=== PATIENT | male | born 1945 | race Caucasian/White ===

== ENCOUNTER 2018-02-26 14:27 | Outpatient (CLI) | payer MEDICARE ==
--- NOTE | 2018-02-26 17:24 | MRI ---
MRI OF THE LUMBAR SPINE WITHOUT CONTRAST: Date: 02/26/18 INDICATION: Lumbar radiculopathy with low back extending down both legs. TECHNIQUE: Multiplanar, multisequence MR images were obtained of the lumbar spine without IV contrast. FINDINGS: No acute fracture is evident. Conus is seen to terminate at approximately L1. Visualized retroperiton eum demonstrates a 1.2 cm within the left mid kidney. At L5-S1, there is mild broad based bulge with mild facet joint degenerative change, but no appreciab le central canal or neural foraminal narrowing. At L4-5, there is a broad based bulge with facet hypertrophy, causing mild encroachment on the neural foramina without definite impingement. At L3-4, there is a broad based bulge with mild facet joint degenerative change inducing mild bilater al neural foraminal narrowing. At L2-3, there is a broad based bulge with facet hypertrophy inducing mild neural foraminal encroachm ent without definite nerve root impingement. At L1-2, there is no appreciable central canal narrowing. There is mild broad based bulge. At T12-L1, there is no appreciable central canal or neural foraminal narrowing. IMPRESSION: 1. Multilevel spondylosis of the lumbar spine with mild neural foraminal narrowing as above. 2. Left renal cyst. POS: C
== END 2018-02-26 14:28 | disposition home or self-care (01) ==
LOC: BICMRI 14:27
PROVIDERS: ATTEND Neurological Surgery
DX: M47.26 Other spondylosis with radiculopathy, lumbar region (principal); M99.83 Other biomechanical lesions of lumbar region; N28.1 Cyst of kidney, acquired
CPT/HCPCS: 72148

== ENCOUNTER 2018-03-05 09:48 | Outpatient (CLI) | payer MEDICARE ==
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
== END 2018-03-05 09:49 | disposition home or self-care (01) ==
LOC: TBSIIMAG 09:48
PROVIDERS: ATTEND Neurological Surgery
DX: M51.16 Intervertebral disc disorders with radiculopathy, lumbar region (principal); M48.061 Spinal stenosis, lumbar region without neurogenic claudication
CPT/HCPCS: 72131

== ENCOUNTER 2018-10-14 09:33 | Outpatient (CLI) | payer MEDICARE ==
--- NOTE | 2018-10-14 10:40 | MRI ---
MRI thoracic spine noncontrast: DATE: 10/14/2018 HISTORY: 73-year-old male with thoracic spine pain and thoracic spine radiculopathy FINDINGS: Bone marrow signal is normal. Vertebral body heights are maintained. No high-grade disc space narrowi ng at any level. No central spinal canal stenosis at any level. No high-grade neural foraminal stenosis at any level. Small nerve root sleeve cysts at multiple levels bilaterally, right more than left. Conus medullaris terminates at T12-L1. Thoracic spinal cord is normal in size and signal. No major pathology of perivertebral spaces. IMPRESSION: Essentially normal thoracic spine
== END 2018-10-14 09:34 | disposition home or self-care (01) ==
LOC: TBSIIMAG 09:33
PROVIDERS: ATTEND Specialist
DX: M54.14 Radiculopathy, thoracic region (principal)
CPT/HCPCS: 72146

== ENCOUNTER 2019-12-19 17:53 | Inpatient (IN) | payer MEDICARE, OTHER ==
[~2019-12-19 17:53] MED LIST: Iopamidol-370 76% 500 ML 1 ML ONE
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
--- NOTE | 2019-12-19 18:31 | CT ---
CT head noncontrast HISTORY: Injury. FINDINGS: There is no evidence of acute intracranial hemorrhage or infarct. Mild chronic ischemic sma ll vessel disease. There is no mass effect or shift of midline structures. Comminuted intra-articular mildly displaced fracture of the right mandibular condyle again demonstrat ed with mild displacement of the posterior articular wall fracture. IMPRESSION : Right temporomandibular joint intra-articular fracture with displacement. No acute intracranial abnormalities are demonstrated. Findings the CT cervical spine and head were called to Dr. Woodall in the emergency department at 182 6 hours. Code CR.
[2019-12-19 18:36] LABS: #Basophils 0.1 thou/uL (0.0-0.2); #Eosinphils 0.4 thou/uL (0.0-0.7); #Lymphocytes 1.6 thou/uL (1.20-3.40); #Monocytes 1.1 thou/uL (0.11-0.59); #Neutrophils 8.1 thou/uL (1.40-6.50); %Eosinophils 3.7 % (0.0-10.0); %Lymphocytes 14.5 % (21.0-51.0); %Monocytes 9.7 % (0.0-10.0); %Neutrophils 71.1 % (42.0-75.0); Hemoglobin 13.4 g/dL (14.0-18.0); Mean Corpuscular HGB CONC 32.7 g/dL (32.0-36.0); Mean Corpuscular Hemoglobin 32.5 pg (27.0-31.0); Mean Corpuscular Volume 99.5 fL (78.0-98.0); Mean Platelet Volume 7.6 fL (7.4-10.4); Platelet Count 297 thou/uL (130-400); RBC Distribution Width 12.1 % (11.5-14.5); Red Blood Cell (RBC) Count 4.14 mill/uL (4.70-6.10); White Blood Cell (WBC) Count 11.3 thou/uL (4.8-10.8)
[2019-12-19 18:43] LABS: INR-International Normal Ratio 0.9; PTT 23.7 sec (22.9-36.1); Prothrombin Time 12.3 sec (12.0-14.7)
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
[2019-12-19] MEDS ORDERED: PROPOFOL 20 ML ONE (18:54)
[2019-12-19 18:57] LABS: ALT (SGPT) 31 U/L (8-55); AST (SGOT) 44 U/L (5-34); Albumin 4.2 g/dL (3.4-4.8); Alkaline Phosphatase 42 U/L (40-110); Anion Gap 16 mmol/L (10-20); BUN (Urea Nitrogen) 21 mg/dL (8.4-25.7); Bilirubin, Total 0.8 mg/dL (0.2-1.2); Calc. Creatinine Clearance 0 mL/min (70-130); Calcium 9.4 mg/dL (7.8-10.44); Carbon Dioxide 23 mmol/L (23-31); Chloride 102 mmol/L (98-107); Estimated GFR-MDRD 53; Globulin 2.8 g/dL (2.4-3.5); Glucose 108 mg/dL (83-110); Potassium 3.7 mmol/L (3.5-5.1); Sodium 137 mmol/L (136-145)
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
--- NOTE | 2019-12-19 19:33 | RAD ---
LEFT KNEE THREE VIEWS: 12/19/19 HISTORY: Knee injury. There is a lateral patellar dislocation. Vascular calcifications are noted. There is a slightly recta ngular shaped area of lucency adjacent to the anterior femoral cortex. I am not certain if this is re lated to some type of laceration or foreign body. IMPRESSION: 1. Lateral patellar dislocation. 2. Probable well defined slightly rectangular shaped area of lucency along the anterior femoral cortex. This could represent some type of foreign body or may be related to some type of puncture or soft tissue injury. POS: VEL
[2019-12-19] MEDS ORDERED: hydrALAZINE 20 MG/ML VIAL SLOW IVP PRN ×2 (20:15)
[2019-12-19] MEDS ORDERED: Dextrose 5% in Water 1,000 ML IV PRN (20:15)
[2019-12-19] MEDS ORDERED: Dextrose 50% Abboject 50 ML SYRINGE SLOW IVP PRN (20:15)
[2019-12-19] MEDS ORDERED: Ondansetron PF 4 MG/2 ML Vial IVP PRN (20:15)
[2019-12-19] MEDS ORDERED: Rib Fracture Protocol IV SCH (20:30)
--- NOTE | 2019-12-19 20:38 | RAD ---
LEFT KNEE THREE VIEWS: 12/09/19 HISTORY: Post reduction. Patella is dislocation has been reduced and patella is now in good position. IMPRESSION: Reduction of patellar dislocation. POS: VEL
[2019-12-19] MEDS ORDERED: Adacel (T-DAP) 0.5 ML SYRINGE ONE (20:49)
--- NOTE | 2019-12-19 20:49 | CT ---
CT arteriogram left lower leg with IV contrast and 3-D imaging HISTORY: Knee dislocation. FINDINGS: No acute osseous abnormalities are demonstrated. Small amount of fluid within the joint cap bang. Alignment is anatomic. Prominent calcification throughout the arterial structures. Good contrast flow within the popliteal artery and into the trifurcation and lower leg arteries. At t he popliteal artery, a small focus of fusiform ectasia is present with internal thrombus. No active extravasation. IMPRESSION : No acute vascular injury is demonstrated. Prominent atherosclerosis. No acute osseous abnormalities are demonstrated.
[2019-12-19] MEDS: Sodium Chloride 0.9% 1,000 ML IV SCH (22:29)
[2019-12-19 22:37] VITALS: BMI 24.4
[2019-12-19] MEDS ORDERED: Morphine 4 MG/ML VIAL SLOW IVP SCH (22:45)
[2019-12-19] MEDS ORDERED: Morphine 4 MG/ML VIAL SLOW IVP PRN (22:48)
[2019-12-19] MEDS ORDERED: traMADol HCl 50 MG TAB PO PRN (22:48)
[2019-12-19] MEDS: Cyclobenzaprine 10 MG TAB PO PRN (23:01)
[2019-12-19] MEDS: Ketorolac Tromethamine 30 MG/ML VIAL IVP SCH (23:02)
[2019-12-19] MEDS: Acetaminophen 500 MG TAB PO SCH (23:02)
[2019-12-19] MEDS: traMADol HCl 50 MG TAB PO SCH (23:02)
[2019-12-19] MEDS: Senokot S 8.6-50 MG TAB PO SCH (23:03)
[2019-12-19] MEDS: Famotidine/PF 20 mg/2ml Vial SLOW IVP SCH (23:03)
[2019-12-19] MEDS ORDERED: Acetaminophen 650 MG Suppository PR SCH (23:59)
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
[2019-12-20] MEDS: Morphine 2 MG/ML VIAL SLOW IVP PRN ×2 (04:40→19:24)
[2019-12-20] MEDS: traMADol HCl 50 MG TAB PO SCH ×4 (06:40→23:34)
[2019-12-20] MEDS: Acetaminophen 500 MG TAB PO SCH ×4 (06:40→23:34)
[2019-12-20] MEDS: Ketorolac Tromethamine 30 MG/ML VIAL IVP SCH (06:46)
[2019-12-20] MEDS: Sodium Chloride 0.9% 1,000 ML IV SCH ×3 (06:46→23:38)
[2019-12-20] MEDS: Polyethylene Glycol 3350 17 GM Packet PO SCH (08:47)
[2019-12-20] MEDS ORDERED: Gabapentin 300 MG CAP PO SCH (09:00)
[2019-12-20 09:44] LABS: #Eosinphils 0.1 thou/uL (0.0-0.7); #Lymphocytes 1.2 thou/uL (1.20-3.40); #Monocytes 0.9 thou/uL (0.11-0.59); #Neutrophils 4.1 thou/uL (1.40-6.50); %Basophils 0.1 % (0.0-1.0); %Eosinophils 2.3 % (0.0-10.0); %Lymphocytes 18.7 % (21.0-51.0); %Monocytes 14.4 % (0.0-10.0); %Neutrophils 64.5 % (42.0-75.0); Hemoglobin 11.4 g/dL (14.0-18.0); Mean Corpuscular HGB CONC 33.9 g/dL (32.0-36.0); Mean Corpuscular Hemoglobin 33.5 pg (27.0-31.0); Mean Corpuscular Volume 98.7 fL (78.0-98.0); Mean Platelet Volume 7.5 fL (7.4-10.4); Platelet Count 232 thou/uL (130-400); RBC Distribution Width 12.1 % (11.5-14.5); White Blood Cell (WBC) Count 6.3 thou/uL (4.8-10.8)
[2019-12-20 10:01] LABS: Anion Gap 11 mmol/L (10-20); BUN (Urea Nitrogen) 13 mg/dL (8.4-25.7); Calc. Creatinine Clearance 58 mL/min (70-130); Calcium 8.5 mg/dL (7.8-10.44); Carbon Dioxide 26 mmol/L (23-31); Chloride 105 mmol/L (98-107); Estimated GFR-MDRD 61; Glucose 106 mg/dL (83-110); Magnesium 1.9 mg/dL (1.6-2.6); Phosphorus 3.4 mg/dL (2.3-4.7); Sodium 138 mmol/L (136-145)
[2019-12-20] MEDS: Senokot S 8.6-50 MG TAB PO SCH ×2 (10:35→19:24)
[2019-12-20] MEDS: Gabapentin 300 MG CAP PO SCH ×2 (10:35→19:24)
[2019-12-20] MEDS: Famotidine/PF 20 mg/2ml Vial SLOW IVP SCH ×2 (10:37→19:24)
[2019-12-20 12:25] LABS: SARS-CoV-2 MS2 Positive; SARS-CoV-2 N Gene Negative; SARS-CoV-2 S Gene Negative; SARS-CoV-2 by NAA Not Detected (NotDetected); SARS-CoV-2 orf1ab Negative
--- NOTE | 2019-12-20 12:51 | CT ---
CT OF FACIAL BONES PERFORMED WITHOUT CONTRAST ENHANCEMENT: HISTORY: Mandible fracture noted on recent ct of brain. FINDINGS: The nasal bone and zygomatic arches are intact. There is moderate mucosal change within the maxillar y sinuses. Mild ethmoid air cell mucosal change bilaterally. There are also some left-sided sphenoi d air cell changes. Pterygoid processes are intact. No orbital or maxillary fractures. There is an intraarticular fracture of the right mandibular condyle. The fracture is slightly a slig htly obliquely oriented fracture through the mandibular neck, but there is a smaller component that e xtends through the articular surface of the condyle. The condyle head is somewhat medially displaced in relation to the joint. No other mandibular fracture is identified. IMPRESSION: Comminuted intraarticular fracture of the right mandibular condyle. POS: VEL
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
[2019-12-20] MEDS: Cyclobenzaprine 10 MG TAB PO PRN (19:24)
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
[2019-12-21 05:05] LABS: #Eosinphils 0.4 thou/uL (0.0-0.7); #Lymphocytes 1.3 thou/uL (1.20-3.40); #Monocytes 0.7 thou/uL (0.11-0.59); #Neutrophils 3.5 thou/uL (1.40-6.50); %Basophils 0.4 % (0.0-1.0); %Eosinophils 6.9 % (0.0-10.0); %Lymphocytes 22.4 % (21.0-51.0); %Monocytes 11.4 % (0.0-10.0); %Neutrophils 58.9 % (42.0-75.0); Hemoglobin 11.1 g/dL (14.0-18.0); Mean Corpuscular HGB CONC 32.1 g/dL (32.0-36.0); Mean Corpuscular Hemoglobin 31.8 pg (27.0-31.0); Mean Corpuscular Volume 99.3 fL (78.0-98.0); Mean Platelet Volume 7.5 fL (7.4-10.4); Platelet Count 229 thou/uL (130-400); RBC Distribution Width 12.1 % (11.5-14.5); Red Blood Cell (RBC) Count 3.47 mill/uL (4.70-6.10)
[2019-12-21 05:23] LABS: Anion Gap 10 mmol/L (10-20); BUN (Urea Nitrogen) 8 mg/dL (8.4-25.7); Calc. Creatinine Clearance 70 mL/min (70-130); Carbon Dioxide 25 mmol/L (23-31); Chloride 106 mmol/L (98-107); Estimated GFR-MDRD 76; Glucose 93 mg/dL (83-110); Magnesium 1.7 mg/dL (1.6-2.6); Potassium 3.6 mmol/L (3.5-5.1); Sodium 137 mmol/L (136-145)
[2019-12-21] MEDS: Acetaminophen 500 MG TAB PO SCH ×2 (06:14→13:42)
[2019-12-21] MEDS: traMADol HCl 50 MG TAB PO SCH ×3 (06:15→17:27)
[2019-12-21] MEDS: Cyclobenzaprine 10 MG TAB PO PRN ×2 (06:18→20:13)
[2019-12-21] MEDS: Sodium Chloride 0.9% 1,000 ML IV SCH ×3 (06:47→21:39)
[2019-12-21] MEDS: Famotidine/PF 20 mg/2ml Vial SLOW IVP SCH ×2 (07:50→20:12)
[2019-12-21] MEDS: Gabapentin 300 MG CAP PO SCH ×2 (07:50→20:12)
[2019-12-21] MEDS: Polyethylene Glycol 3350 17 GM Packet PO SCH (07:50)
[2019-12-21] MEDS ORDERED: Bupivacaine HCl 0.5%/Epinephrine 1:200,000/PF 30 ml Vial ONE (09:14)
[2019-12-21] MEDS ORDERED: Dexamethasone 20 MG/5 ML VIAL ONE (09:14)
[2019-12-21] MEDS ORDERED: Lidocaine 1% PF 5 ML VIAL ONE (09:14)
[2019-12-21] MEDS ORDERED: Ondansetron PF 4 MG/2 ML Vial ONE (09:14)
[2019-12-21] MEDS ORDERED: PROPOFOL 200 MG/20 ML VIAL ONE (09:14)
[2019-12-21] MEDS ORDERED: Bupivacaine PF 0.5% 30 ML VIAL ONE (12:22)
[2019-12-21] MEDS ORDERED: Neomycin-Polymyxin 1 ML AMP ONE (12:22)
[2019-12-21] MEDS ORDERED: Lidocaine 2% w/Epinephrine 1:200K 20 ML VIAL ONE (12:22)
[2019-12-21] MEDS ORDERED: Fentanyl 100 MCG/2 ML VIAL ONE ×2 (12:24→12:47)
[2019-12-21] MEDS ORDERED: Midazolam HCl 2 mg/2 ml Vial ONE (12:47)
[2019-12-21] MEDS ORDERED: Ondansetron ODT 4 MG TAB PO PRN (14:19)
[2019-12-21] MEDS ORDERED: Milk Of Magnesia 30 ML UDCUP PO PRN (14:19)
[2019-12-21] MEDS ORDERED: Acetaminophen 325 MG TAB PO PRN (14:19)
[2019-12-21] MEDS ORDERED: Ondansetron PF 4 MG/2 ML Vial IVP PRN (14:19)
[2019-12-21] MEDS ORDERED: Fentanyl 100 MCG/2 ML VIAL SLOW IVP PRN (14:19)
[2019-12-21] MEDS ORDERED: Fleet Enema 133 ML BOT PR PRN (14:19)
[2019-12-21] MEDS ORDERED: Ketorolac Tromethamine 30 MG/ML VIAL IVP PRN (14:19)
[2019-12-21] MEDS ORDERED: Cepastat Lozenges 1 LOZ PO PRN (14:19)
[2019-12-21] MEDS ORDERED: Bisacodyl 10 MG SUPP PR PRN (14:19)
[2019-12-21] MEDS ORDERED: Promethazine HCl 25 MG/ML VIAL SLOW IVP PRN (14:25)
[2019-12-21] MEDS ORDERED: Ondansetron HCl/PF 4 MG/2 ML Vial IVP PRN (14:25)
[2019-12-21] MEDS ORDERED: HYDROmorphone 2 MG/ML VIAL SLOW IVP PRN (14:25)
[2019-12-21] MEDS ORDERED: Promethazine HCl 25 MG/ML VIAL IM PRN (14:25)
[2019-12-21] MEDS ORDERED: Meperidine HCl/PF 25 MG/ML VIAL SLOW IVP PRN (14:25)
--- NOTE | 2019-12-21 14:55 | OP ---
DATE OF PROCEDURE: 12/21/2019 PREOPERATIVE DIAGNOSIS: The patient is status post dislocation of the left knee. POSTOPERATIVE DIAGNOSES: 1. The patient is status post dislocation of the left knee. 2. Tear of the medial collateral ligament. 3. Complex tear of the medial retinaculum. 4. Tears of the anterior and posterior cruciate ligaments. PROCEDURE PERFORMED: Repair of the medial collateral ligament complex and medial retinaculum of the left knee. ANESTHESIA: General. DESCRIPTION OF PROCEDURE: The patient was given preoperative IV antibiotics, taken to the operating room, placed in supine position. Satisfactory general anesthesia was performed. The left lower extremity was sterilely prepped and draped in the usual fashion. After exsanguination, tourniquet was raised to 250 mmHg at the proximal thigh. A longitudinal incision was made on the medial aspect of the knee and the medial collateral ligament was intact on the proximal aspect of the tibia. It was torn midsubstance and from the medial femoral epicondyle. Dissection was made up to the medial retinaculum, which was also torn since the patella dislocated laterally at the time of injury. Vicryl was used in an interrupted simple and [id number] sutures to repair the intrasubstance tears of the medial collateral ligament and then a 4.75 Arthrex anchor was placed into the medial epicondylar area and two #2 FiberWire sutures were used to pull the proximal portion of the medial collateral ligament back down to the medial epicondylar region. The knee was tested and the knee was stable with valgus stress. Varus stress showed that the lateral collateral ligament was intact. The medial retinaculum was repaired using #2 Vicryl with interrupted [id number] sutures and this provided good stability for the patella. The wound was then irrigated with antibiotic solution, closed using 0 Vicryl for the fat and subcutaneous tissue, and the skin was closed with skin flor. Sterile dressing was applied. Tourniquet was released. The patient was placed in knee immobilizer. He was awakened, extubated, and transferred to recovery room in stable condition. ESTIMATED BLOOD LOSS: 50 mL. COMPLICATIONS: None. TOURNIQUET TIME: 37 minutes. Job ID: [id number]
[2019-12-21] MEDS ORDERED: Labetalol HCl 100 MG/20 ML VIAL ONE (15:23)
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
[2019-12-21] MEDS ORDERED: Magnesium 2 GM/50 ML 2 GM in Premix Bag 1 BAG IVPB SCH (16:45)
[2019-12-21] MEDS ORDERED: Amlodipine 5 mg/Benazepril 20 mg CAP PO SCH (17:15)
[2019-12-21] MEDS ORDERED: Cyclobenzaprine 10 MG TAB PO PRN (18:16)
[2019-12-21] MEDS ORDERED: Ketorolac Tromethamine 30 MG/ML VIAL IVP SCH (18:30)
[2019-12-21] MEDS: Ibuprofen 600 MG TAB PO SCH (18:41)
[2019-12-21] MEDS: Ferrous Gluconate 324 MG TAB PO SCH (20:12)
[2019-12-21] MEDS: Senokot S 8.6-50 MG TAB PO SCH (21:38)
[2019-12-21] MEDS: CEFAZOLIN 2 GM in Premix Bag 1 BAG IVPB SCH (21:40)
[2019-12-22] MEDS: traMADol HCl 50 MG TAB PO SCH ×3 (00:21→11:26)
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
[2019-12-22] MEDS: Ibuprofen 600 MG TAB PO SCH ×2 (02:25→10:02)
[2019-12-22] MEDS: CEFAZOLIN 2 GM in Premix Bag 1 BAG IVPB SCH (05:39)
[2019-12-22 05:44] LABS: Hemoglobin 10.9 g/dL (14.0-18.0); Mean Corpuscular HGB CONC 32.5 g/dL (32.0-36.0); Mean Corpuscular Hemoglobin 32.2 pg (27.0-31.0); Mean Corpuscular Volume 99.1 fL (78.0-98.0); Mean Platelet Volume 7.5 fL (7.4-10.4); Platelet Count 231 thou/uL (130-400); Red Blood Cell (RBC) Count 3.37 mill/uL (4.70-6.10); White Blood Cell (WBC) Count 8.3 thou/uL (4.8-10.8)
[2019-12-22] MEDS ORDERED: Levothyroxine Sodium 25 MCG TAB PO SCH (06:00)
[2019-12-22] MEDS: Senokot S 8.6-50 MG TAB PO SCH (08:33)
[2019-12-22] MEDS: Famotidine/PF 20 mg/2ml Vial SLOW IVP SCH (08:33)
[2019-12-22] MEDS: Polyethylene Glycol 3350 17 GM Packet PO SCH (08:33)
[2019-12-22] MEDS: Ferrous Gluconate 324 MG TAB PO SCH (08:34)
[2019-12-22] MEDS: Gabapentin 300 MG CAP PO SCH (08:34)
[2019-12-22] MEDS ORDERED: Amlodipine 5 mg/Benazepril 20 mg CAP PO SCH (09:00)
[2019-12-22] MEDS ORDERED: Multivitamin W/ Minerals 1 TAB PO SCH (09:00)
[2019-12-22] MEDS ORDERED: Enoxaparin Sodium 40 MG/0.4 ML SYRINGE SC SCH (09:45)
[2019-12-22 12:22] VITALS: TEMP 97.9
[2019-12-22 12:29] VITALS: BP 158/69
[2019-12-22] MEDS ORDERED: Acetaminophen 500 MG TAB PO SCH (14:00)
[2019-12-22] MEDS ORDERED: Famotidine 20 MG TAB PO SCH (21:00)
[2019-12-23] MEDS ORDERED: Enoxaparin Sodium 40 MG/0.4 ML SYRINGE SC SCH (09:00)
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
== END 2019-12-22 14:40 | disposition home or self-care (01) | DRG 488 ==
LOC: ERS 17:53 → SURG B 20:18
PROVIDERS: ADMIT Surgery; ATTEND Surgery
PROC: 0MQP0ZZ Repair Left Knee Bursa and Ligament, Open Approach (ICD-10-PCS; principal; 2019-12-21)
DX: S83.195A Other dislocation of left knee, initial encounter (principal); S02.19XA Other fracture of base of skull, initial encounter for closed fracture; S22.41XA Multiple fractures of ribs, right side, initial encounter for closed fracture; I10 Essential (primary) hypertension; S02.611A Fracture of condylar process of right mandible, initial encounter for closed fracture; X58.XXXA Exposure to other specified factors, initial encounter; S83.412A Sprain of medial collateral ligament of left knee, initial encounter; Z90.49 Acquired absence of other specified parts of digestive tract; Z87.891 Personal history of nicotine dependence
CPT/HCPCS: 27550; 36415; 70450; 70486; 71045; 71260; 72125; 74177; 80048; 80053; 83735; 84100; 85025; 85027; 85610; 85730; 87635; 90471; 90715; 94640; 96374; 99152; C1713; G0390; J0360; J0670; J0690; J1100; J1650; J1885; J2250; J2270; J2405; J2704; J3010; J3475; J7620; Q9967; S0020; S0028; U0003

== ENCOUNTER 2020-03-25 10:50 | Outpatient (CLI) | payer MEDICARE ==
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
== END 2020-03-25 10:51 | disposition home or self-care (01) ==
LOC: TBSIIMAG 10:50
PROVIDERS: ATTEND Surgery
DX: M54.5 Low back pain (principal); M79.18 Myalgia, other site; M51.36 Other intervertebral disc degeneration, lumbar region; M47.816 Spondylosis without myelopathy or radiculopathy, lumbar region
CPT/HCPCS: 72148

== ENCOUNTER 2020-07-26 08:53 | Day surgery (SDC) | payer MEDICARE ==
[2020-07-26] MEDS ORDERED: Lidocaine 1% PF 5 ML VIAL ONE (09:54)
[2020-07-26] MEDS ORDERED: Glycopyrrolate 0.2 MG/ML 5 ML SYRINGE ONE (09:54)
[2020-07-26] MEDS ORDERED: ePHEDrine 50 MG/ML VIAL ONE (09:54)
[2020-07-26] MEDS ORDERED: Ondansetron PF 4 MG/2 ML Vial ONE (09:54)
[2020-07-26] MEDS ORDERED: PROPOFOL 200 MG/20 ML VIAL ONE (09:54)
[2020-07-26] MEDS ORDERED: Dexamethasone 20 MG/5 ML VIAL ONE (09:54)
[2020-07-26] MEDS ORDERED: Rocuronium Bromide 10 MG/ML (10ML VIAL) ONE (09:54)
[2020-07-26] MEDS ORDERED: Fentanyl 100 MCG/2 ML VIAL ONE ×4 (11:27→15:54)
[2020-07-26] MEDS ORDERED: Thrombin 5000 UNITS/5 ML VIAL ONE (11:37)
[2020-07-26] MEDS ORDERED: Acetaminophen/Codeine 30-300mg Tablet PO PRN (13:14)
[2020-07-26] MEDS ORDERED: Acetaminophen 325 MG TAB PO PRN (13:14)
[2020-07-26] MEDS ORDERED: Bisacodyl 10 MG SUPP PR PRN (13:14)
[2020-07-26] MEDS ORDERED: traMADol HCl 50 MG TAB PO PRN (13:14)
[2020-07-26] MEDS ORDERED: Milk Of Magnesia 30 ML UDCUP PO PRN (13:14)
[2020-07-26] MEDS ORDERED: Mag-Al 1200 mg/1200 mg/30 ML UDCUP PO PRN (13:14)
[2020-07-26] MEDS ORDERED: tiZANidine HCl 4 MG TAB PO PRN (13:14)
--- NOTE | 2020-07-26 13:53 | OP ---
DATE OF PROCEDURE: 07/26/2020 LOCATION: OR-12. PAINTER AND DECORATOR APPRENTICE: Monserrat Knight PA-C PREPROCEDURE DIAGNOSIS: Low back and right leg pain with right L5 radiculopathy. POSTPROCEDURE DIAGNOSIS: Low back and right leg pain with right L5 radiculopathy. PROCEDURE PERFORMED: Right L4-L5 hemilaminotomy, foraminotomy. DESCRIPTION OF PROCEDURE: After informed consent was obtained from the patient, midline L4-L5 haroon was drawn over the L4-L5 segment. This area was sterilely cleansed, prepared, and draped. Proper patient, pause, and identification were carried out. The wound was then opened with a combination of sharp, monopolar, and blunt dissection. The right L4-L5 segment was exposed. Localization film confirmed our area of interest and performed a right L4-L5 hemilaminotomy, foraminotomy with excellent decompression of the traversing right L5 nerve root. Copious irrigation occurred hemostasis. The wound was then closed in anatomic layers following sprinkling of vancomycin powder. The patient emerged from anesthesia. Job ID: [id number]
[2020-07-26] MEDS ORDERED: tiZANidine HCl 4 MG TAB ONE (14:08)
[2020-07-26] MEDS ORDERED: Promethazine HCl 25 MG/ML VIAL SLOW IVP PRN (14:18)
[2020-07-26] MEDS ORDERED: Promethazine HCl 25 MG/ML VIAL IM PRN (14:18)
[2020-07-26] MEDS ORDERED: Ondansetron HCl/PF 4 MG/2 ML Vial IVP PRN (14:18)
[2020-07-26] MEDS ORDERED: Morphine 2 MG/ML VIAL ONE (15:17)
[2020-07-26 16:44] VITALS: BMI 22.9
[2020-07-26] MEDS: Sodium Chloride 0.9% 1,000 ML IV SCH (17:41)
[2020-07-26] MEDS: Morphine 2 MG/ML VIAL SLOW IVP PRN (17:51)
[2020-07-26] MEDS: CEFAZOLIN 2 GM in Premix Bag 1 BAG IVPB SCH (19:45)
[2020-07-26] MEDS: HYDROcodone/Acetaminophen 7.5/325 mg Tablet PO PRN (20:33)
[2020-07-27] MEDS: Morphine 2 MG/ML VIAL SLOW IVP PRN (00:07)
[2020-07-27] MEDS: CEFAZOLIN 2 GM in Premix Bag 1 BAG IVPB SCH (01:28)
[2020-07-27] MEDS: Sodium Chloride 0.9% 1,000 ML IV SCH ×2 (04:18→06:27)
[2020-07-27] MEDS ORDERED: Levothyroxine Sodium 25 MCG TAB PO SCH (06:00)
[2020-07-27 07:32] VITALS: TEMP 98
[2020-07-27] MEDS ORDERED: hydrALAZINE 20 MG/ML VIAL SLOW IVP PRN (07:44)
[2020-07-27] MEDS: HYDROcodone/Acetaminophen 7.5/325 mg Tablet PO PRN (08:12)
--- NOTE | 2020-07-27 08:32 | PRG ---
DATE OF SERVICE: 07/27/2020 Mr. Mulligan has had resolution of his low back and proximal pain of the L5 distribution on the right side. His dressing is dry. His strength is good. He has met criteria for discharge and will be discharged home. Job ID: [id number]
[2020-07-27] MEDS ORDERED: Lisinopril 20 MG TAB PO SCH (09:00)
[2020-07-27] MEDS ORDERED: Amlodipine 10 MG TAB PO SCH (09:00)
[2020-07-27] MEDS ORDERED: FLU VACC QS2020-21(65YR UP)/PF 240 MCG/0.7 ML SYRINGE IM ONE (09:00)
[2020-07-27 10:28] VITALS: BP 177/82
== END 2020-07-27 11:28 | disposition home or self-care (01) ==
LOC: SDC 08:53 → T4-A 13:14 → SDC 07-27 11:28
PROVIDERS: ATTEND Surgery
PROC: 01NB0ZZ Release Lumbar Nerve, Open Approach (ICD-10-PCS; principal; 2020-07-26)
DX: M54.16 Radiculopathy, lumbar region (principal); M53.3 Sacrococcygeal disorders, not elsewhere classified; Z79.82 Long term (current) use of aspirin; Z79.899 Other long term (current) drug therapy
CPT/HCPCS: 63030; 76000; 97139; J2270 ×2; J0690; J1100; J2405; J2704; J3010; J3370; J3490

== ENCOUNTER 2021-07-20 08:56 | Outpatient (CLI) | payer MEDICARE | END 2021-07-20 08:57 | disposition home or self-care (01) | LOC: NM 08:56 | PROVIDERS: ATTEND Orthopaedic Surgery | DX: M54.6 Pain in thoracic spine (principal); S22.31XA Fracture of one rib, right side, initial encounter for closed fracture; I25.10 Atherosclerotic heart disease of native coronary artery without angina pectoris; I70.0 Atherosclerosis of aorta | CPT/HCPCS: 71250; 78315; A9503 ==

== ENCOUNTER 2022-04-25 07:41 | Outpatient (CLI) | payer MEDICARE | END 2022-04-25 07:42 | disposition home or self-care (01) | LOC: TBSIIMAG 07:41 | PROVIDERS: ATTEND Urology | DX: R97.20 Elevated prostate specific antigen [PSA] (principal) | CPT/HCPCS: 72197; 82565 ==

== ENCOUNTER 2025-02-24 10:40 | Outpatient (CLI) | payer MEDICARE | END 2025-02-24 10:41 | disposition home or self-care (01) | LOC: SCSMRI 10:40 | PROVIDERS: ATTEND Orthopaedic Surgery | DX: S46.011A Strain of muscle(s) and tendon(s) of the rotator cuff of right shoulder, initial encounter (principal); M25.411 Effusion, right shoulder; S43.401A Unspecified sprain of right shoulder joint, initial encounter ==

== ENCOUNTER 2025-03-15 10:18 | Outpatient (CLI) | payer MEDICARE ==
[2025-03-15 11:33] LABS: #Basophils 0.05 10x3/uL (0.0-0.2); #Eosinophils 0.73 10x3/uL (0.0-0.7); #Monocytes 0.68 10x3/uL (0.11-0.59); #Neutrophils 3.59 10x3/uL (1.40-6.50); %Basophils 0.8 % (0.0-1.0); %Eosinophils 11.0 % (0.0-10.0); %Lymphocytes 23.5 % (21.0-51.0); %Monocytes 10.3 % (0.0-10.0); %Neutrophils 54.1 % (42.0-75.0); Hematocrit 38.7 % (42.0-52.0); Hemoglobin 13.0 g/dL (14.0-18.0); Mean Corpuscular Hemoglobin 31.4 pg (27.0-31.0); Mean Corpuscular Volume 93.5 fL (78.0-98.0); Platelet Count 334 10x3/uL (130-400); Red Blood Cell (RBC) Count 4.14 mill/uL (4.70-6.10); White Blood Cell (WBC) Count 6.63 10x3/uL (4.8-10.8)
[2025-03-15 11:51] LABS: Anion Gap 18 mmol/L (10-20); BUN (Urea Nitrogen) 37 mg/dL (8.4-25.7); Calc. Creatinine Clearance 0 mL/min (70-130); Calcium 10.3 mg/dL (7.8-10.44); Carbon Dioxide 28 mmol/L (23-31); Chloride 102 mmol/L (98-107); Glucose 118 mg/dL (83-110); Potassium 4.5 mmol/L (3.5-5.1); Sodium 143 mmol/L (136-145)
== END 2025-03-15 10:19 | disposition home or self-care (01) ==
LOC: LABBT 10:18
PROVIDERS: ATTEND Orthopaedic Surgery
DX: Z01.818 Encounter for other preprocedural examination (principal)
CPT/HCPCS: 80048; 85025; 93005; 93010